=== PATIENT | female | born 1945 | race Caucasian/White ===

== ENCOUNTER 2018-02-20 06:10 | Emergency (ER) | payer MEDICARE, BC ==
[~2018-02-20] VITALS: Ht 165.1 cm; Wt 150.0 kg
--- NOTE | 2018-02-20 06:28 | NUR ---
73 Y/O FEMALE HUYEN REMSA FROM HOME FOR BILATERAL FOOT/ANKLE PAIN. THE PT REPORTS JUST WAKING UP WITH THIS PAIN TODAY. DENIES ANY RECENT TRAUMA/FALLS. NO REDNESS/SWELLING NOTED TO EITHER FOOT OR ANKLE. PT REPORTS HX OF GOUT AND THIS FEELS LIKE SIMILAR ATTACKS. PT IS ALERT AND ORIENTED. HX OF HTN, DIABETES, GOUT, CVA (MEMORY DEFECITS), DEMENTIA. DAUGHTER IS POA AND LIVES WITH THE PT. SHE IS PRESENT. DR. COOK AT BEDSIDE EVALUATING PT. ALL MONITORING EQUIPMENT APPLIED. ALL VITALS STABLE. WILL CONTINUE TO MONITOR.
[2018-02-20] MEDS ORDERED: ACETAMINOPHEN 325 MG TABLET PO ONE (06:30)
[2018-02-20 06:47] LABS: BASOPHILS # (AUTO) 0.13 x10^3/uL (0-0.1); BASOPHILS % (AUTO) 1 % (0-1); EOSINOPHILS # (AUTO) 0.24 x10^3/uL (0-0.4); EOSINOPHILS % (AUTO) 3 % (1-7); LYMPHOCYTES # (AUTO) 3.34 x10^3/uL (1-3.4); LYMPHOCYTES % (AUTO) 38 % (22-44); MD NO; MEAN CORPUSCULAR HEMOGLOBIN 30.1 pg (27.0-34.8); MEAN CORPUSCULAR HGB CONC 33.5 g/dL (32.4-35.8); MEAN CORPUSCULAR VOLUME 89.7 fL (80-100); MEAN PLATELET VOLUME 10.1 fL (7.4-10.4); MONOCYTES # (AUTO) 0.72 x10^3/uL (0.2-0.8); MONOCYTES % (AUTO) 8 % (2-9); NEUTROPHILS # (AUTO) 4.44 x10^3/uL (1.8-6.8); NEUTROPHILS % (AUTO) 50 % (42-75); PLATELET COUNT 231 x10^3/uL (130-400); RED CELL DISTRIBUTION WIDTH 15.2 % (9.6-15.2)
[2018-02-20 06:50] LABS: ANION GAP 9 mmol/L (5-15); CALCIUM 8.3 mg/dL (8.5-10.1); CHLORIDE 107 mmol/L (98-107); CREATININE 1.25 mg/dL (0.55-1.02)
[2018-02-20] MEDS ORDERED: ACETAMINOPHEN 325 MG TABLET ONE (06:52)
--- NOTE | 2018-02-20 06:55 | NUR ---
PT MEDICATED PER EMAR FOR PAIN. 5 RIGHTS ADDRESSED. NO OTHER NEEDS AT THIS TIME. AWAITING TESTING AT THIS TIME
--- NOTE | 2018-02-20 06:58 | NUR ---
REPORT FROM DEBRA RIVERA.
--- NOTE | 2018-02-20 07:11 | NUR ---
REPORT TO MIGUEL BRANDT
[2018-02-20 07:27] VITALS: BP 150/67
--- NOTE | 2018-02-20 07:28 | NUR ---
MELBA RN: PATIENT RESTING. ADMITTING IN ROOM WITH RAMESH
--- NOTE | 2018-02-20 08:39 | NUR ---
Patient/Caregiver given discharge instructions and they have confirmed that they understand the instructions. Patient ambulatory with steady gait.
== END 2018-02-20 08:41 | disposition home or self-care (01) ==
LOC: ED 07:34
DX: M25.571 Pain in right ankle and joints of right foot (principal); E11.9 Type 2 diabetes mellitus without complications; F03.90 Unspecified dementia, unspecified severity, without behavioral disturbance, psychotic disturbance, mood disturbance, and anxiety; Z86.73 Personal history of transient ischemic attack (TIA), and cerebral infarction without residual deficits
CPT/HCPCS: 36415; 80048; 85025; 99283